=== PATIENT | male | born 1985 | race Caucasian/White ===

== ENCOUNTER 2020-12-04 05:51 | Emergency (ER) | payer BC, OTHER ==
[~2020-12-04] VITALS: Ht 182.9 cm; Wt 132.9 kg
[2020-12-04] MEDS ORDERED: KETOROLAC TROMETHAMINE 60 MG/2 ML VIAL IM ONE (07:30)
[2020-12-04] MEDS ORDERED: CYCLOBENZAPRINE10 MG PO (07:33)
[2020-12-04] MEDS ORDERED: ULTRAM 50MG50 MG PO (07:33)
[2020-12-04] MEDS ORDERED: NAPROSYN500 MG PO (07:39)
[2020-12-04 07:55] VITALS: BP 135/83
== END 2020-12-04 08:00 | disposition home or self-care (01) ==
LOC: FSED 06:22
DX: M79.18 Myalgia, other site (principal); R51.9 Headache, unspecified; S60.512A Abrasion of left hand, initial encounter; S60.511A Abrasion of right hand, initial encounter; R11.2 Nausea with vomiting, unspecified; V42.5XXA Car driver injured in collision with two- or three-wheeled motor vehicle in traffic accident, initial encounter; Y92.488 Other paved roadways as the place of occurrence of the external cause; I10 Essential (primary) hypertension; E78.5 Hyperlipidemia, unspecified; E03.9 Hypothyroidism, unspecified
CPT/HCPCS: 70450; 96372; 99283; J1885